=== PATIENT | male | born 1990 | race Caucasian/White ===

== ENCOUNTER 2021-08-27 23:28 | Emergency (ER) | payer MEDICAID ==
[~2021-08-27] VITALS: Ht 172.7 cm; Wt 86.2 kg
[2021-08-28] MEDS ORDERED: IBUP-1957 PO (00:34)
[2021-08-28] MEDS ORDERED: CYCL5TAB PO (00:34)
[2021-08-28] MEDS ORDERED: KETOROLAC TROMETHAMINE INJ 30 MG/ML VIAL ONE (00:36)
[2021-08-28] MEDS ORDERED: CYCLOBENZAPRINE 10 MG TABLET ONE (00:36)
--- NOTE | 2021-08-28 00:45 | NUR ---
Patient discharged to home in stable condition. Written and verbal after care instructions given. Patient verbalizes understanding of instruction.
[2021-08-28 00:46] VITALS: BP 126/88
[2021-08-28] MEDS ORDERED: CYCLOBENZAPRINE 10 MG TABLET PO ONE (01:00)
[2021-08-28] MEDS ORDERED: KETOROLAC TROMETHAMINE INJ 30 MG/ML VIAL IM ONE (01:00)
== END 2021-08-28 00:46 | disposition home or self-care (01) ==
LOC: ER 23:34
DX: S39.012A Strain of muscle, fascia and tendon of lower back, initial encounter (principal); F17.200 Nicotine dependence, unspecified, uncomplicated; Z79.1 Long term (current) use of non-steroidal anti-inflammatories (NSAID); Z79.899 Other long term (current) drug therapy; X58.XXXA Exposure to other specified factors, initial encounter; Y93.89 Activity, other specified; Y92.89 Other specified places as the place of occurrence of the external cause; Y99.8 Other external cause status
CPT/HCPCS: 96372; 99283; J1885

== ENCOUNTER 2022-05-01 23:52 | Emergency (ER) | payer MEDICAID ==
[~2022-05-01] VITALS: Ht 172.7 cm; Wt 86.2 kg
[~2022-05-01 23:52] MED LIST: CYCL5TAB PO; IBUP-1957 PO
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
--- NOTE | 2022-05-02 01:05 | NUR ---
MALTED MILK SUPERVISOR AT PT'S BEDSIDE
--- NOTE | 2022-05-02 02:45 | NUR ---
Patient discharged to home in stable condition. Written and verbal after care instructions given. Patient verbalizes understanding of instruction. PT ambulatory with a steady gait
[2022-05-02 02:47] VITALS: BP 140/88
== END 2022-05-02 02:44 | disposition home or self-care (01) ==
LOC: ER 23:53
DX: S90.122A Contusion of left lesser toe(s) without damage to nail, initial encounter (principal); F17.200 Nicotine dependence, unspecified, uncomplicated; Z79.899 Other long term (current) drug therapy; V89.2XXA Person injured in unspecified motor-vehicle accident, traffic, initial encounter; Y93.89 Activity, other specified; Y92.89 Other specified places as the place of occurrence of the external cause; Y99.8 Other external cause status
CPT/HCPCS: 73660-TC

== ENCOUNTER 2022-06-11 23:47 | Emergency (ER) | payer MEDICAID ==
[~2022-06-11] VITALS: Ht 172.7 cm; Wt 72.6 kg
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
[2022-06-12] MEDS ORDERED: HYDROCODONE/APAP 5/325MG TABLET ONE (00:39)
[2022-06-12] MEDS ORDERED: KETOROLAC TROMETHAMINE INJ 30 MG/ML VIAL ONE (00:40)
[2022-06-12] MEDS ORDERED: TDAP [DIPH/PERTUSSIS/TET] 0.5 ML VIAL IM ONE ×2 (00:40→01:00)
--- NOTE | 2022-06-12 00:49 | NUR ---
LOGISTICS ASSISTANT AT PT'S BEDSIDE
[2022-06-12] MEDS ORDERED: HYDROCODONE/APAP 10/325MG TABLET PO ONE (01:00)
[2022-06-12] MEDS ORDERED: KETOROLAC TROMETHAMINE INJ 30 MG/ML VIAL IM ONE (01:00)
[2022-06-12] MEDS ORDERED: NAPR-1164 PO (03:48)
--- NOTE | 2022-06-12 04:12 | NUR ---
Patient discharged to home in stable condition. Written and verbal after care instructions given. Patient verbalizes understanding of instruction.
[2022-06-12 04:47] VITALS: BP 127/79
== END 2022-06-12 04:12 | disposition home or self-care (01) ==
LOC: ER 23:48
DX: S40.211A Abrasion of right shoulder, initial encounter (principal); F17.200 Nicotine dependence, unspecified, uncomplicated; Z79.899 Other long term (current) drug therapy; V09.9XXA Pedestrian injured in unspecified transport accident, initial encounter; Y93.55 Activity, bike riding; Y92.89 Other specified places as the place of occurrence of the external cause; Y99.8 Other external cause status
CPT/HCPCS: 99284; 96372; 90471; 90715; 73000; 73030; J1885

== ENCOUNTER 2023-02-27 01:50 | Emergency (ER) | payer MEDICAID ==
[~2023-02-27] VITALS: Ht 175.3 cm; Wt 83.9 kg
[~2023-02-27 01:50] MED LIST changes: +NAPR-1164 PO
[2023-02-27 03:05] VITALS: BP 145/96; TEMP 98.1; O2SAT 100
[2023-02-27] MEDS ORDERED: CEPHALEXIN MONOHYDRATE 500 MG CAPSULE PO ONE ×2 (03:19→03:30)
[2023-02-27] MEDS ORDERED: SULFAMETH/TRIMETH 800/160 MG 1 UDTAB TABLET ONE (03:19)
[2023-02-27] MEDS ORDERED: CEPH500T PO (03:21)
[2023-02-27] MEDS ORDERED: SULF1TAB48 PO (03:21)
[2023-02-27] MEDS ORDERED: SULFAMETH/TRIMETH 800/160 MG 1 UDTAB TABLET PO ONE (03:30)
== END 2023-02-27 03:35 | disposition home or self-care (01) ==
LOC: ER 01:59
DX: L02.416 Cutaneous abscess of left lower limb (principal); F17.200 Nicotine dependence, unspecified, uncomplicated